=== PATIENT | female | born 1980 ===

== ENCOUNTER 2018-12-16 18:43 | Emergency (ER) | payer OTHER ==
[~2018-12-16] VITALS: Ht 147.3 cm; Wt 75.9 kg
[2018-12-16 20:28] LABS: PLATELET COUNT 264 K/uL (152-353)
[2018-12-16 20:34] LABS: POTASSIUM 3.4 mmol/L (3.6-5.2)
[2018-12-16 21:00] VITALS: TEMP 99
[2018-12-17 02:11] VITALS: BP 97/55
== END 2018-12-17 02:14 | disposition home or self-care (01) ==
LOC: ED 18:43
PROVIDERS: Student in an Organized Health Care Education/Training Program
DX: A41.9 Sepsis, unspecified organism (principal); I95.9 Hypotension, unspecified; N30.90 Cystitis, unspecified without hematuria; J18.9 Pneumonia, unspecified organism; E11.9 Type 2 diabetes mellitus without complications; R00.0 Tachycardia, unspecified
CPT/HCPCS: 80053; 81000; 81025; 83605; 85027; 87040; 87077; 87086; 87088; 87186; 87502; 93005; 96361; 96365; 96367; 96368; 96374; 96375; 99285; J0456; J0696; J1265; J1815; J1885; J2405

== ENCOUNTER 2022-02-24 20:38 | Emergency (ER) | payer OTHER ==
[~2022-02-24] VITALS: Ht 147.3 cm; Wt 74.8 kg
[2022-02-24 22:38] VITALS: BP 117/73; TEMP 98.7
== END 2022-02-24 22:38 | disposition home or self-care (01) ==
LOC: ED 20:38
DX: J20.9 Acute bronchitis, unspecified (principal); B34.9 Viral infection, unspecified; U07.1 COVID-19; F17.210 Nicotine dependence, cigarettes, uncomplicated
CPT/HCPCS: 81002; 81015; 87502; 87635; 87651; 99283; U0003

== ENCOUNTER 2022-12-01 16:10 | Outpatient (CLI) | payer OTHER | END 2022-12-01 19:05 | disposition home or self-care (01) | LOC: US 16:10 | PROVIDERS: ATTEND Nurse Practitioner Family | DX: R10.12 Left upper quadrant pain (principal) ==